=== PATIENT | male | born 1995 | race Caucasian/White ===

== ENCOUNTER 2019-08-14 14:41 | Emergency (ER) | payer OTHER ==
[~2019-08-14] VITALS: Ht 182.9 cm; Wt 99.8 kg
[2019-08-14 15:56] VITALS: BP 137/79
[2019-08-14] MEDS ORDERED: ACETAMINOPHEN/CODEINE#3 (300/30mg) TAB PO ONE (17:00)
== END 2019-08-14 17:31 | disposition home or self-care (01) ==
LOC: ER 14:44
DX: S62.306A Unspecified fracture of fifth metacarpal bone, right hand, initial encounter for closed fracture (principal); Z88.2 Allergy status to sulfonamides; W22.01XA Walked into wall, initial encounter; Y93.89 Activity, other specified; Y92.89 Other specified places as the place of occurrence of the external cause; Y99.8 Other external cause status
CPT/HCPCS: 29125; 73130

== ENCOUNTER 2023-04-07 19:12 | Emergency (ER) | payer BC, OTHER ==
[~2023-04-07] VITALS: Ht 182.9 cm; Wt 113.6 kg
[2023-04-07 19:38] VITALS: BP 99/52
== END 2023-04-08 00:45 | disposition left against medical advice (07) ==
LOC: ER 19:18
DX: M25.571 Pain in right ankle and joints of right foot (principal); M25.471 Effusion, right ankle; Z53.21 Procedure and treatment not carried out due to patient leaving prior to being seen by health care provider
CPT/HCPCS: 73610